=== PATIENT | male | born 1990 | race American Indian/Alaskan Native ===

== ENCOUNTER 2021-11-11 22:30 | Emergency (ER) | payer SELFPAY ==
--- NOTE | 2021-11-12 00:23 | XRay Report ---
RIGHT SHOULDER 2 VIEW(S) INDICATION / CLINICAL INFORMATION: INJURY COMPARISON: None available. FINDINGS: BONES / JOINT(S): There is anterior shoulder dislocation. No displaced fracture. No significant arthr itis. Oval calcifications noted overlying the region of the axillary recess, which may represent inte rarticular bodies. SOFT TISSUES: No significant abnormality. ADDITIONAL FINDINGS: None. Signer Name: Cj Tinajero DO Signed: 11/12/2021 12:19 AM Workstation Name: [id number]
[2021-11-12] MEDS ORDERED: fentaNYL 100 MCG/2 ML INJ IV ONE (01:43)
[2021-11-12] MEDS ORDERED: ONDANSETRON 4 MG/2 ML INJ IM ONE (01:43)
[2021-11-12] MEDS ORDERED: KETAMINE 500 MG/5 ML VIAL MDV IV ONE (02:08)
[2021-11-12] MEDS ORDERED: propofoL 200 MG/20 ML VIAL IV ONE (02:08)
[2021-11-12] MEDS ORDERED: SODIUM CHLORIDE 0.9% 1000 ML 1,000 ML IV ONE (02:09)
--- NOTE | 2021-11-12 02:26 | Emergency Department Report ---
ED Upper Extremity Inj HPI - General Chief Complaint: Extremity Injury, Upper Stated Complaint: DISLOCATED SHOULDER Time Seen by Provider: 11/12/21 01:37 Source: patient, family Mode of arrival: Ambulatory Limitations: No Limitations - History of Present Illness Initial Comments: 31-year-old right hand dominant male with no significant past medical history presents to the hospital complaining of right shoulder dislocation while lifting heavy furniture. This is patient's third episode of dislocation. He has not follow-up with orthopedics. Pain is moderate to severe in intensity, will worsen movement, palpation. Somewhat improved with rest. Patient denies numbness or paresthesias. - Related Data Previous Rx's Medication Instructions Recorded Last Taken Type Ibuprofen [Motrin] 800 mg PO Q8HR PRN #30 tablet 11/12/21 Unknown Rx Allergies Allergy/AdvReac Type Severity Reaction Status Date / Time No Known Allergies Allergy Verified 11/11/21 22:43 ED Review of Systems ROS: Stated complaint: DISLOCATED SHOULDER Other details as noted in HPI Comment: All other systems reviewed and negative ED Past Medical Hx - Medications Home Medications: Home Medications Medication Instructions Recorded Confirmed Last Taken Type Ibuprofen [Motrin] 800 mg PO Q8HR PRN #30 tablet 11/12/21 Unknown Rx ED Physical Exam - General Limitations: No Limitations - Other Other exam information: General: No acute distress Head: Atraumatic Eyes: normal appearance ENT: Moist mucous membranes Neck: Normal appearance, no midline tenderness Chest: Clear to auscultation bilaterally CV: Regular rate and rhythm Abdomen: Soft, normal bowel sounds, nontender, nondistended, no rebound or guarding Back: Normal inspection Extremity: Right shoulder deformity. Sensation to deltoid and forearm intact. 2+ radial pulse. Strong handgrip Neuro: Alert O x 3, no facial asymmetry, speech clear, no gross motor sensory deficit Psych: Appropriate behavior Skin: No rash ED Course Vital Signs 11/11/21 11/12/21 11/12/21 22:30 01:41 01:46 Temperature 98 F Pulse Rate 86 83 69 Respiratory 18 15 20 Rate Blood Pressure 108/63 Blood Pressure 111/66 [Right] O2 Sat by Pulse 98 99 99 Oximetry 11/12/21 11/12/21 11/12/21 02:00 02:16 02:30 Temperature Pulse Rate 86 71 74 Respiratory 16 14 16 Rate Blood Pressure 109/60 106/58 114/58 Blood Pressure [Right] O2 Sat by Pulse 98 99 98 Oximetry 11/12/21 11/12/21 11/12/21 02:46 02:53 02:55 Temperature 98.1 F Pulse Rate 70 Respiratory 19 16 Rate Blood Pressure 113/68 Blood Pressure [Right] O2 Sat by Pulse 98 100 Oximetry 11/12/21 11/12/21 11/12/21 03:00 03:16 03:30 Temperature Pulse Rate 89 63 62 Respiratory 16 20 16 Rate Blood Pressure 124/70 115/69 105/64 Blood Pressure [Right] O2 Sat by Pulse 100 100 100 Oximetry 11/12/21 11/12/21 03:46 04:00 Temperature Pulse Rate 66 71 Respiratory 20 24 Rate Blood Pressure 107/71 104/62 Blood Pressure [Right] O2 Sat by Pulse 100 100 Oximetry - Orthopedic Joint Reduction Joint #1 Consent Obtained: written consent Time Out Performed: Yes Side: right Joint Reduction Location: shoulder Analgesia: moderate sedation Shoulder Technique Used (if applicable): external rotation Technique Used: traction/counter-traction Post-Reduction Neuro Exam: intact Post-Reduction Vascular Exam: intact Post Reduction X-Ray Obtained: Yes Post Reduction X-Ray Results: reduced Splint Applied: Yes Patient Tolerated Procedure: well Additional Comments: Procedure time started 2:46 AM Stop time 2:56 AM ED Medical Decision Making - Radiology Data Radiology results: report reviewed RIGHT SHOULDER 2 VIEW(S) INDICATION / CLINICAL INFORMATION: INJURY COMPARISON: None available. FINDINGS: BONES / JOINT(S): There is anterior shoulder dislocation. No displaced frac ture. No significant arthritis. Oval calcifications noted overlying the region of the axillary recess, which may represent interarticular bodies. SOFT TISSUES: No significant abnormality. ADDITIONAL FINDINGS: None. RIGHT SHOULDER 1 VIEW(S) INDICATION / CLINICAL INFORMATION: post reduction film COMPARISON: None available. FINDINGS: BONES / JOINT(S): Post reduction radiographs demonstrates appropriate reduction of the right shoulder. No significant arthritis. Redemonstrated oval calcification overlying the axillary recess which may represent an intra-articular body SOFT TISSUES: No significant abnormality. ADDITIONAL FINDINGS: None. - Medical Decision Making 31-year male presents to the hospital with right shoulder dislocation. Discussed reduction with conscious sedation. Critical Care Time: No Critical care attestation.: If time is entered above; I have spent that time in minutes in the direct care of this critically ill patient, excluding procedure time. ED Disposition Clinical Impression: Recurrent dislocation, right shoulder Disposition: 01 HOME / SELF CARE / HOMELESS Is pt being admited?: No Does the pt Need Aspirin: No Condition: Stable Instructions: Shoulder Dislocation, Moderate Conscious Sedation, Adult, Care After Additional Instructions: Take the medication as prescribed. Follow-up with orthopedic surgery for further work-up and management. return if symptoms worsen as indicated by your discharge instructions. Prescriptions: Ibuprofen [Motrin] 800 mg PO Q8HR PRN #30 tablet PRN Reason: Pain , Severe (7-10) Referrals: JAQUELIN SCHMITZ MD [Staff Physician] - 3-5 Days (Orthopedic surgeon) [facility] [[facility]] - 3-5 Days (Orthopedic surgeon) Time of Disposition: 04:29
--- NOTE | 2021-11-12 04:23 | XRay Report ---
RIGHT SHOULDER 1 VIEW(S) INDICATION / CLINICAL INFORMATION: post reduction film COMPARISON: None available. FINDINGS: BONES / JOINT(S): Post reduction radiographs demonstrates appropriate reduction of the right shoulder . No significant arthritis. Redemonstrated oval calcification overlying the axillary recess which may represent an intra-articular body SOFT TISSUES: No significant abnormality. ADDITIONAL FINDINGS: None. Signer Name: Cj Tinajero DO Signed: 11/12/2021 4:19 AM Workstation Name: [id number]
[2021-11-12] MEDS ORDERED: KETOROLAC 30 MG/1 ML INJ IV ONE (04:49)
[2021-11-12 05:17] VITALS: BP 110/62
== END 2021-11-12 05:11 | disposition home or self-care (01) ==
LOC: EDSEX → ED 22:30
DX: S43.004A Unspecified dislocation of right shoulder joint, initial encounter (principal); X58.XXXA Exposure to other specified factors, initial encounter; Y93.89 Activity, other specified; Y92.89 Other specified places as the place of occurrence of the external cause; Y99.8 Other external cause status
CPT/HCPCS: 23650; 73020; 73030; 96361; 96372; 96374; 96375; 99283; J1885; J2405; J2704; J3010; J3490